=== PATIENT | female | born 1985 | race Caucasian/White ===

== ENCOUNTER 2016-08-27 20:01 | Emergency (ER) | payer OTHER ==
[~2016-08-27] VITALS: Ht 162.6 cm; Wt 100.0 kg
[~2016-08-27 20:01] MED LIST: MTR600X PO; NAPR-1169 PO; NAPR250T43 PO; NRN100 PO; ONDA4TAB46 PO; subutex
[2016-08-27 20:22] VITALS: TEMP 36.7; Ht 162.6 cm; Wt 100.0 kg
[2016-08-27 22:20] VITALS: BP 111/67
[2016-08-27] MEDS ORDERED: BUPR8SUB19 SL (22:38)
[2016-08-27] MEDS ORDERED: ONDA4TAB46 PO (22:38)
[2016-08-27] MEDS ORDERED: NRN600 PO (22:38)
[2016-08-27] MEDS ORDERED: INDO-24 PO (22:38)
[2016-08-28 00:19] VITALS: PULSE 88; O2SAT 96
--- NOTE | 2016-08-28 04:40 | EMERGENCY ROOM VISIT NOTE ---
History First contact with patient: 21:45 Chief Complaint: SWELLING TO EXTREMITY Stated Complaint: SWELLED LEGS AND FEET History of Present Illness The patient is a 31 year old female who presents to the Emergency Room with complaints of bilateral leg swelling worsening over the past day. The patient states that she has been driving in her car for the past several days, and is now swollen her legs. The patient has had similar symptoms in the past. She does not recall injury or trauma. She is without fever, chest pain, chest tightness, shortness of breath. She previously was on Lasix for similar symptoms, but has not taken this in some time. She rates her overall discomfort 2/10. Review of Systems More than 10 systems were reviewed and otherwise negative with the exception of history of present illness. Past Medical/Surgical History Medical Problems: (1) Asthma (2) Decreased movement Surgical Problems: (1) Hx of tonsillectomy Family History Cancer Diabetes mellitus Hypertension Social History Smoking Status: Never Smoker Alcohol Use: none Drug Use: none Marital Status: in relationship Housing Status: lives with family Occupation Status: employed Current/Historical Medications Scheduled Buprenorphine Hcl (Subutex), 1 TAB SL BID Gabapentin (Gabapentin), 600 MG PO BID Scheduled PRN Indomethacin (Indocin), 50 MG PO TID PRN for Pain Ondansetron Hcl (Zofran), 4 MG PO Q8 PRN for Nausea Allergies Coded Allergies: Cephalosporins (Verified Allergy, Intermediate, Facial swelling--CAN TAKE PCN W/O RXN, 08/27/16) Physical Exam Vital Signs Date Time Temp Pulse Resp B/P Pulse Ox O2 Delivery O2 Flow Rate FiO2 08/28/16 00:19 88 20 96 08/27/16 22:20 84 16 111/67 96 Room Air 08/27/16 20:22 36.7 100 22 147/99 96 Room Air Pain Rating (0-10): 3.0 Physical Exam VITALS: Vitals are noted on the nurse's note and reviewed by myself. Vital signs stable. GENERAL: Well-developed, well-nourished, white female, who is in no acute distress and resting comfortably. Patient is cooperative with the examination. HEAD: Normocephalic atraumatic. HEART: Regular rate and rhythm without murmurs gallops or rubs. LUNGS: Clear to auscultation bilaterally without wheezes, rales or rhonchi. No retractions or accessory muscle use. MUSCULOSKELETAL: 1+ pitting pretibial edema appreciated bilateral. Mild tenderness of the bilateral calves appreciated without obvious palpable cord. No erythema noted. NEURO: Patient was alert and oriented to person place and time. CN II through XII grossly intact. Medical Decision & Procedures ER Provider Diagnostic Interpretation: Preliminary Findings Only See Final Report For Complete Findings US VENOUS BILATERAL LOWER EXTREMITIES: No evidence of DVT within the right or left lower extremity ED Course Physical exam and history were performed. Nursing notes and EMR were reviewed. Patient appears to have swelling to her bilateral legs over the past few days. Ultrasound was performed and was without evidence of DVT. I suspect the patient 's symptoms are likely related to a dependent edema. I recommended elevation and compression stockings. She should follow with her primary care physician as she may need to return to [facility] on an as-needed basis. The patient was invited back to the ER anytime with any new, worsening, or concerning symptoms. The chart was completed utilizing [employer] Speech Voice Recognition Software. Grammatical errors, random word insertions, pronoun errors, and incomplete sentences are an occasional consequence of this system due to software limitations, ambient noise, and hardware issues. Any formal questions or concerns about the content, text, or information contained within the body of this dictation should be directly addressed to the provider for clarification. . Medical Decision Differential diagnosis: Etiologies such as DVT, musculoskeletal, infection, joint effusion, trauma, lymphedema, idiopathic, CHF, as well as others were entertained.. Impression Primary Impression: Swelling of lower extremity Departure Information Dispostion Home / Self-Care Condition GOOD Forms HOME CARE DOCUMENTATION FORM, IMPORTANT VISIT INFORMATION Patient Instructions My [facility] Additional Instructions You were seen and evaluated today on an emergency basis only. This is not a substitute for, or an effort to provide, complete comprehensive medical care. It is not possible to recognize and treat all injuries or illnesses in a single emergency department visit. For this reason it is recommended that you followup with your primary care physician this week if any ongoing or persistent symptoms Elevate your legs for additional symptoms. Consider using compression stockings. You are welcome to return to the emergency department anytime with new, worsening, or concerning symptoms.
--- NOTE | 2016-08-28 07:07 | DIAGNOSTIC IMAGING REPORT ---
BILATERAL LOWER EXTREMITY VENOUS DOPPLER HISTORY: Leg swelling after driving COMPARISON STUDY: None. FINDINGS: There is normal compressibility, flow, and augmentation within the bilateral lower extremity deep venous systems. IMPRESSION: No DVT within the right or left lower extremity. Electronically signed by: Fab Wilson M.D. 08/28/2016 7:06 AM Dictated Date/Time: 08/28/2016 7:06 AM
[2016-09-06] MEDS ORDERED: FURO-85 PO (11:26)
[2016-09-06] MEDS ORDERED: BUSP15TA70 PO (11:26)
[2016-09-06] MEDS ORDERED: IBUP-1428 PO (11:26)
[2016-09-06] MEDS ORDERED: POTA10CA28 PO (11:26)
== END 2016-08-28 00:20 | disposition home or self-care (01) ==
LOC: C.EDB 20:02 → C.EDC 08-28 00:20
DX: M79.89 Other specified soft tissue disorders (principal); J45.909 Unspecified asthma, uncomplicated; Z83.3 Family history of diabetes mellitus; Z82.49 Family history of ischemic heart disease and other diseases of the circulatory system

== ENCOUNTER → 2016-12-26 | Outpatient (CLI) | payer OTHER ==
[~2016-12-26] MED LIST changes: +BUPR8SUB19 SL; +BUSP15TA70 PO; +FURO-85 PO; +IBUP-1428 PO; +INDO-24 PO; -MTR600X PO; -NAPR-1169 PO; -NAPR250T43 PO; -NRN100 PO; +NRN600 PO; +POTA10CA28 PO; -subutex
--- NOTE | 2016-12-26 16:44 | DIAGNOSTIC IMAGING REPORT ---
RIGHT LOWER EXT JOINT WITHOUT CLINICAL HISTORY: 31 years-old Female presenting with right knee pain status post fall February 14, 2016, lower leg swelling. TECHNIQUE: Multisequence, multiplanar MR imaging of the right knee was performed without the use of intravenous contrast. IV contrast: None. COMPARISON: Plain radiographs of the right lower leg from 2012. FINDINGS: Localizer images: Unremarkable. No bony edema. Focal increased signal intensity and minimal irregularity along the mid articular surface of the medial femoral condyle measuring 4 x 4 millimeters (grade 1 cartilage injury). Focal fissuring along the median prominence of the patellar articular cartilage extending less than 50% of the thickness of the cartilage (grade 2 cartilage injury). Opposing trochlear cartilage demonstrates increased signal intensity and minimal irregularity (grade 1 cartilage injury). Quadriceps and patellar tendons intact. Prepatellar laminar fluid and subcutaneous edema. Anterior and posterior cruciate ligaments intact. Medial and lateral menisci intact. Medial collateral ligament intact. Lateral collateral ligament complex including the biceps femoris tendon, tibial or collateral ligament, popliteus tendon, and iliotibial band intact. Normal muscle bulk. No intramuscular edema. IMPRESSION: 1. Focal grade 1 cartilage injury in the mid articular surface of the medial femoral condyle. 2. Focal fissuring along the median prominence of the patellar articular cartilage (grade 2 cartilage injury) with mild opposing trochlear cartilage injury. 3. Evidence of prepatellar bursitis. Electronically signed by: Addison Loepz M.D. 12/26/2016 4:42 PM Dictated Date/Time: 12/26/2016 4:32 PM
== END | disposition home or self-care (01) ==
LOC: C.MRIBC 14:15
PROVIDERS: ATTEND Orthopaedic Surgery
DX: M25.561 Pain in right knee (principal); M24.10 Other articular cartilage disorders, unspecified site